=== PATIENT | male | born 1955 | race Caucasian/White ===

== ENCOUNTER 2018-03-10 19:58 | Emergency (ER) | payer BC ==
[~2018-03-10] VITALS: Ht 188 cm; Wt 115.7 kg
[2018-03-10 20:15] VITALS: Ht 188 cm; Wt 115.7 kg
[2018-03-10 21:17] VITALS: BP 117/62
== END 2018-03-10 21:17 | disposition home or self-care (01) ==
LOC: ED 19:58
DX: I83.91 Asymptomatic varicose veins of right lower extremity (principal); J44.9 Chronic obstructive pulmonary disease, unspecified; I10 Essential (primary) hypertension; E03.9 Hypothyroidism, unspecified
CPT/HCPCS: A4570